=== PATIENT | male | born 1965 | race Caucasian/White ===

== ENCOUNTER 2017-03-11 21:10 | Emergency (ER) | payer MEDICARE, MEDICAID ==
[~2017-03-11] VITALS: Ht 170.2 cm; Wt 79.4 kg
[~2017-03-11 21:10] MED LIST: ENAL20TA70 PO
[2017-03-11] MEDS ORDERED: LORazepam 2MG/ML-1ML VIAL IV ONE (21:45)
[2017-03-11 21:57] LABS: Basophils # (auto) 0 uL; Basophils % (auto) 0.4 % (0.0-2.0); CONDITION Y; Eosinophils # (auto) 0 uL; Eosinophils % (auto) 0.4 % (0.0-7.0); Hematocrit 42.3 % (41.0-53.0); Hemoglobin 14.7 g/dL (13.5-17.5); Lymphocytes % (auto) 16.3 % (10.0-50.0); Mean Corpuscular Hemoglobin 29.8 pg (28.0-32.0); Mean Corpuscular Hgb Conc. 34.6 g/dL (32.0-36.0); Mean Corpuscular Volume 86.1 fL (80.0-100.0); Mean Platelet Volume 7.8 fL (7.4-10.4); Monocytes # (auto) 0.7 uL; Monocytes % (auto) 5.7 % (0.0-12.0); Neutrophils # (auto) 9.2 uL; Neutrophils % (auto) 77.2 % (37.0-80.0); Platelet Count (auto) 392 10^3/uL (140-450); Red Cell Distribution Width 13.7 % (11.6-16.0)
[2017-03-11 22:13] LABS: Albumin 3.8 g/dL (3.4-5.0); BUN/Creatinine Ratio 10.9; Calcium 8.5 mg/dL (8.5-10.1); INR 0.91 (0.9-1.15); Partial Thromboplastin Time 27.4 sec (22.64-33.71); Potassium 3.4 mmol/L (3.5-5.1); Prothrombin Time 9.9 sec (9.37-12.3)
[2017-03-11 22:16] LABS: Bilirubin, Total 0.3 mg/dL (0.2-1.0)
[2017-03-12] MEDS ORDERED: LORazepam 2MG/ML-1ML VIAL IV ONE (02:00)
[2017-03-12 02:25] VITALS: BP 112/65
[2017-03-12] MEDS ORDERED: SODIUM CHLORIDE 0.9% 500 ML IV ONE (04:15)
[2017-03-12] MEDS ORDERED: THIAMINE HCL 100 MG/ML 2ML VIAL IV ONE (04:15)
== END 2017-03-12 05:44 | disposition home or self-care (01) ==
LOC: EDBD 21:10 → ER 21:14
DX: G92 Toxic encephalopathy (principal); F10.129 Alcohol abuse with intoxication, unspecified; F10.230 Alcohol dependence with withdrawal, uncomplicated; Y90.7 Blood alcohol level of 200-239 mg/100 ml; F41.9 Anxiety disorder, unspecified; I10 Essential (primary) hypertension; R07.9 Chest pain, unspecified; Z59.0 Homelessness
CPT/HCPCS: 36415; 80053; 80320; 85025; 85610; 85730; 93005; 96361; 96374; 96375; 96376; 99285; J2060; J3411; J7040

== ENCOUNTER 2018-01-27 15:08 | Emergency (ER) | payer MEDICAID, MEDICARE ==
[~2018-01-27] VITALS: Ht 175.3 cm; Wt 83.9 kg
[2018-01-27 15:30] VITALS: BP 145/90
[2018-01-27] MEDS ORDERED: SODIUM CHLORIDE 0.9% 1,000 ML IVB ONE (16:02)
[2018-01-27 16:37] LABS: Basophils # (auto) 0.1 uL; Basophils % (auto) 1.3 % (0.0-2.0); Eosinophils # (auto) 0 uL; Eosinophils % (auto) 0.3 % (0.0-7.0); Hematocrit 39.7 % (41.0-53.0); Hemoglobin 13.6 g/dL (13.5-17.5); Lymphocytes # (auto) 1.7 uL; Lymphocytes % (auto) 25.2 % (10.0-50.0); Mean Corpuscular Hemoglobin 31.1 pg (28.0-32.0); Mean Corpuscular Hgb Conc. 34.3 g/dL (32.0-36.0); Mean Corpuscular Volume 90.6 fL (80.0-100.0); Monocytes # (auto) 0.6 uL; Monocytes % (auto) 9.3 % (0.0-12.0); Neutrophils # (auto) 4.4 uL; Neutrophils % (auto) 63.9 % (37.0-80.0); Nucleated Red Blood Cells % 0.2 %; Platelet Count (auto) 345 10^3/uL (140-450); Red Blood Cells 4.38 10^6/uL (4.5-5.90); Red Cell Distribution Width 13.8 % (11.8-14.3); White Blood Cell 6.9 10^3/uL (4.4-10.8)
[2018-01-27 16:53] LABS: Albumin 3.6 g/dL (3.4-5.0); BUN/Creatinine Ratio 4.9; Calcium 8.1 mg/dL (8.5-10.1); Magnesium 2.1 mg/dL (1.6-2.6); Potassium 3.7 mmol/L (3.5-5.1)
[2018-01-27 16:55] LABS: Bilirubin, Total 0.4 mg/dL (0.2-1.0); Total Protein 7.7 g/dL (6.4-8.2)
== END 2018-01-27 17:35 | disposition left against medical advice (07) ==
LOC: ER 15:08 → EDBD 15:08 → ER 17:35
DX: F10.220 Alcohol dependence with intoxication, uncomplicated (principal); I10 Essential (primary) hypertension; Z59.0 Homelessness; Z53.29 Procedure and treatment not carried out because of patient's decision for other reasons
CPT/HCPCS: 36415; 70450; 71045; 80053; 80320; 83735; 85025; 99285; J7030